=== PATIENT | female | born 1980 | race Caucasian/White ===

== ENCOUNTER 2016-03-10 08:04 | Emergency (ER) | payer OTHER ==
[2016-03-10] MEDS ORDERED: SODIUM CHLORIDE 0.9% 1,000 ML IV ONE (08:48)
[2016-03-10] MEDS ORDERED: DEXAMETHASONE 10 MG/ML VIAL IVP STA (08:49)
== END 2016-03-10 11:37 | disposition home or self-care (01) ==
DX: J10.1 Influenza due to other identified influenza virus with other respiratory manifestations (principal); E86.0 Dehydration; R55 Syncope and collapse